=== PATIENT | female | born 1985 | race Two or more races ===

== ENCOUNTER 2021-05-13 14:28 | Emergency (ER) | payer SELFPAY ==
--- NOTE | 2021-05-13 15:22 | EDM.PDOC ---
ED HPI GENERAL MEDICAL PROBLEM - General Stated Complaint: DIZZY Time Seen by Provider: 05/13/21 15:20 Source of Information: Reports: Patient History Limitations: Reports: No Limitations - History of Present Illness INITIAL COMMENTS - FREE TEXT/NARRATIVE: 36-year-old female who reports onset last Friday with dizziness that is both twisting and tipping and feeling off balance. She reports the symptoms have been coming and going since 1 week ago and they have also been intermittently associated with headaches that have been occipital and also bitemporal. They have also been associated with nausea but no vomiting. She also has been having a feeling of numbness and tingling in both her left arm and left. All the symptoms seem to come and go and the longest that they have lasted would be today and it lasted for about 2 hours now. The headache is rated by her as a 7/10. The pain is a pressure type pain. She states at times she feels completely back to normal and has none of the symptoms and then they seemed to come on without any provocation. She does not feel that her dizziness is worse or better with her head but she does feel that there is some worsening in her dizziness now when she closes her eyes. No diarrhea. No abdominal pain. She feels that her vision is good. She also feels that she is having no problems thinking, speaking or finding words. She does not feel weak one side of her body versus the other. There are no other associated signs or symptoms. There are no other modifying factors. Onset: Other (One week ago) Duration: Waxing/Waning (It seems to come and go but has been present over the past week.) Location: Reports: Head Quality: Reports: Pressure Severity: Moderate Improves with: Reports: None Worsens with: Reports: Other (Activity. 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 (see below) (Nothing.) Bilateral Leg Pain Score (Numeric/FACES): 4 - Related Data Allergies Allergy/AdvReac Type Severity Reaction Status Date / Time No Known Allergies Allergy Verified 06/30/18 10:33 Home Meds: Home Meds Meloxicam 15 mg PO DAILY #20 tablet 06/30/18 [Rx] Meclizine [Antivert] 25 mg PO Q6H PRN #15 tab 08/29/21 [Rx] Past Medical History - Past Surgical History GI Surgical History: Reports: Cholecystectomy Female Surgical History: Reports: Tubal Ligation Social & Family History - Tobacco Use Tobacco Use Status *Q: Unknown Ever Used Tobacco (Nonsmoker.) - Caffeine Use Caffeine Use: Reports: Soda - Alcohol Use Alcohol Use History: No - Living Situation & Occupation Living situation: Reports: ED ROS GENERAL - Review of Systems Review Of Systems: See Below Constitutional: Denies: Fever, Chills, Weakness, Diaphoresis HEENT: Reports: Other (No tinnitus). Denies: Ear Pain, Hearing Loss, Vision Change Cardiovascular: Denies: Chest Pain, Edema, Palpitations GI/Abdominal: Reports: Nausea. Denies: Diarrhea, Vomiting : Denies: Dysuria, Hematuria Musculoskeletal: Denies: Neck Pain, Shoulder Pain Skin: Denies: Rash, Wound Neurological: Reports: Dizziness, Headache. Denies: Confusion Psychiatric: Reports: Anxiety. Denies: Confusion Hematologic/Lymphatic: Denies: Easy Bleeding, Easy Bruising ED EXAM, DIZZINESS - Physical Exam Exam: See Below Exam Limited By: No Limitations General Appearance: Alert, No Apparent Distress, Obese Eye Exam: Bilateral Eye: EOMI, Normal Inspection, PERRL, Other (No nystagmus) Ears: Normal External Exam, Hearing Grossly Normal Nose: Normal Inspection, Normal Mucosa, No Blood Throat/Mouth: Normal Inspection, Normal Oropharynx, Normal Voice, No Airway Compromise Head Exam: Atraumatic, Normocephalic Neck: Normal Inspection, Supple, Non-Tender, Full Range of Motion Respiratory/Chest: No Respiratory Distress, Lungs Clear, Normal Breath Sounds, No Accessory Muscle Use Cardiovascular: Normal Peripheral Pulses, Regular Rate, Rhythm GI/Abdominal: Normal Bowel Sounds, Soft, Non-Tender, No Mass Neurological: Alert, Normal Mood/Affect, Normal Dorsiflexion, CN II-XII Intact, Normal Plantar Flexion, Normal Gait, No Motor/Sensory Deficits, Oriented x 3, Other (No pronator drift. Finger to nose is normal with no dysmetria.) Back Exam: Normal Inspection, Full Range of Motion Extremities: Normal Inspection, Normal Range of Motion, Non-Tender, No Pedal Edema, Normal Capillary Refill Psychiatric: Normal Affect, Normal Mood Skin Exam: Warm, Dry, Intact, Normal Color, No Rash #1 Interpretation EKG Date: 05/13/21 Time: 16:28 Rhythm: NSR Rate (Beats/Min): 66 Wallace: Normal P-Wave: Present QRS: Normal ST-T: Other (Borderline T-wave abnormalities in anterior leads) QT: Normal Comparison: No Change (No change from EKG performed on 03/15/2014.) Course - Vital Signs Last Recorded V/S: Last Vital Signs Temp 37.1 C 05/13/21 14:30 Pulse 78 05/13/21 14:30 Resp 18 05/13/21 14:30 BP 140/86 05/13/21 14:30 Pulse Ox 97 05/13/21 14:30 - Orders/Labs/Meds Orders: Active Orders 24 hr Category Date Time Status Ang Head [CT] Stat Exams 05/13/21 15:47 Taken Ang Neck [CT] Stat Exams 05/13/21 15:47 Taken Sodium Chloride 0.9% [Saline Flush] Med 05/13/21 15:47 Active 10 ml FLUSH ASDIRECTED PRN Peripheral IV Insertion Adult [OM.PC] Routine Oth 05/13/21 15:47 Ordered EKG 12 Lead [EK] Routine Ther 05/13/21 15:47 Ordered Medication Orders Sodium Chloride (Sodium Chloride 0.9% 10 Ml Syringe) 10 ml FLUSH ASDIRECTED PRN PRN Reason: Keep Vein Open Last Admin: 05/13/21 15:55 Dose: 10 ml Documented by: SALOME Labs: Laboratory Tests 05/13/21 05/13/21 05/13/21 Range/Units 16:00 16:00 16:00 WBC 8.8 (3.0-10.3) x10-3/uL RBC 4.54 (3.60-5.20) x10(6)uL Hgb 13.4 (11.4-15.5) g/dL Hct 39.4 (34.2-48.2) % MCV 86.8 (76.7-100.5) fL MCH 29.5 (23.9-33.9) pg MCHC 34.0 (31.9-34.8) g/dL RDW 13.5 (12.3-16.5) % Plt Count 464 (151-488) x10(3)uL MPV 8.1 (7.1-12.4) fL Neut % (Auto) 76.2 (30.8-76.2) % Lymph % (Auto) 16.1 L (18.4-52.1) % Nicol[place] % (Auto) 6.1 (4.4-15.7) % Eos % (Auto) 0.9 (0.6-8.1) % Baso % (Auto) 0.7 (0.2-1.5) % Neut # (Auto) 6.7 H (1.5-6.3) x10-3/uL Lymph # (Auto) 1.4 (1.0-4.4) x10-3/uL Nicollet # (Auto) 0.5 (0.3-1.0) x10-3/uL Eos # (Auto) 0.1 (0.0-0.8) x10-3/uL Baso # (Auto) 0.1 (0.0-0.1) x10-3/uL ESR (0-20) mm/hr Sodium 141 (135-145) mmol/L Potassium 3.8 (3.5-5.3) mmol/L Chloride 104 (100-110) mmol/L Carbon Dioxide 28 (21-32) mmol/L BUN 8 (7-18) mg/dL Creatinine 0.7 (0.55-1.02) mg/dL Est Cr Clr Drug Dosing TNP Estimated GFR (MDRD) > 60 (>60) BUN/Creatinine Ratio 11.4 (9-20) Glucose 113 (80-116) mg/dL Calcium 9.8 (8.6-10.2) mg/dL Magnesium 1.9 (1.8-2.5) mg/dL Total Bilirubin 0.4 (0.1-1.3) mg/dL AST 19 D (5-25) IU/L ALT 30 D (12-36) U/L Alkaline Phosphatase 104 (56-112) IU/L Troponin I 9.3 (4.0-60.3) pg/mL Total Protein 7.8 (6.0-8.0) g/dL Albumin 3.7 (3.5-5.2) g/dL Globulin 4.1 g/dL Albumin/Globulin Ratio 0.9 08// Range/Units 16:00 WBC (3.0-10.3) x10-3/uL RBC (3.60-5.20) x10(6)uL Hgb (11.4-15.5) g/dL Hct (34.2-48.2) % MCV (76.7-100.5) fL MCH (23.9-33.9) pg MCHC (31.9-34.8) g/dL RDW (12.3-16.5) % Plt Count (151-488) x10(3)uL MPV (7.1-12.4) fL Neut % (Auto) (30.8-76.2) % Lymph % (Auto) (18.4-52.1) % Nicollet % (Auto) (4.4-15.7) % Eos % (Auto) (0.6-8.1) % Baso % (Auto) (0.2-1.5) % Neut # (Auto) (1.5-6.3) x10-3/uL Lymph # (Auto) (1.0-4.4) x10-3/uL Nicollet # (Auto) (0.3-1.0) x10-3/uL Eos # (Auto) (0.0-0.8) x10-3/uL Baso # (Auto) (0.0-0.1) x10-3/uL ESR 18 (0-20) mm/hr Sodium (135-145) mmol/L Potassium (3.5-5.3) mmol/L Chloride (100-110) mmol/L Carbon Dioxide (21-32) mmol/L BUN (7-18) mg/dL Creatinine (0.55-1.02) mg/dL Est Cr Clr Drug Dosing Estimated GFR (MDRD) (>60) BUN/Creatinine Ratio (9-20) Glucose (80-116) mg/dL Calcium (8.6-10.2) mg/dL Magnesium (1.8-2.5) mg/dL Total Bilirubin (0.1-1.3) mg/dL AST (5-25) IU/L ALT (12-36) U/L Alkaline Phosphatase (56-112) IU/L Troponin I (4.0-60.3) pg/mL Total Protein (6.0-8.0) g/dL Albumin (3.5-5.2) g/dL Globulin g/dL Albumin/Globulin Ratio Meds: Medications Generic Name Dose Route Start Last Admin Trade Name Aiden PRN Reason Stop Dose Admin Sodium Chloride 10 ml 05/13/21 15:47 05/13/21 15:55 Sodium Chloride 0.9% 10 Ml Syringe FLUSH 10 ml ASDIRECTED PRN Administration Keep Vein Open Discontinued Medications Generic Name Dose Route Start Last Admin Trade Name Aiden PRN Reason Stop Dose Admin Sodium Chloride 500 mls @ 999 mls/hr 05/13/21 15:51 05/13/21 16:00 Normal Saline IV 05/13/21 16:21 999 mls/hr .BOLUS ONE Administration Iopamidol 100 ml 05/13/21 16:07 05/13/21 16:21 Iopamidol 755 Mg/Ml 100 Ml Bottle IV 05/13/21 16:08 100 ml . DIRECTED ONE Administration Meclizine HCl 25 mg 05/13/21 15:51 05/13/21 16:00 Meclizine 25 Mg Tab PO 05/13/21 15:52 25 mg ONETIME ONE Administration - Radiology Interpretation Free Text/Narrative:: CTA of the neck showed no major vessel occlusion, hemodynamically significant stenosis or arterial dissection. There was no aneurysm. This was per the [facility] radiologist. CTA of the head showed major vessel occlusion, hemodynamically significant stenosis or arterial dissection. No aneurysm. This was per the [facility] radiologist - Re-Assessments/Exams Free Text/Narrative Re-Assessment/Exam: 05/13/21 16:35: White blood cell count was 8.8. Hemoglobin is 13.4. Platelet count is normal. Serum electrolyte profile is normal. Glucose is 113. LFTs are normal. Troponin is normal. Her EKG is normal. A sedimentation rate was normal. I am awaiting the results of the CTAs of her head and neck. She has remained hemodynamically and neurologically stable and in fact any headache or left-sided symptoms now and her dizziness is much improved as well (she had been given meclizine 25 mg orally earlier). 05/13/21 17:00: Patient feels much improved. Her dizziness and headache have resolved. She has no feeling of going or numbness over the left arm or leg. The CTAs of the head and neck were negative. I am unsure why she is having the headache and the dizziness but it does not appear to be anything of a serious nature at this point. This could be labyrinthitis as I discussed with her or could also be a migraine variant. I will give her a prescription of meclizine she can use as needed for dizziness. She should increase her fluid intake. She should rest. All of this was discussed with the patient and I answered her questions. She is comfortable with the plan for discharge. Precautions and reasons for return to the emergency department were discussed with the patient also was in the emergency department or detailed in the patient's discharge instructions. Departure - Departure Time of Disposition: 17:40 Disposition: Home, Self-Care 01 Condition: Good Clinical Impression: Dizziness Headache Qualifiers: Headache type: unspecified Headache chronicity pattern: acute headache Intractability: not intractable Qualified Code(s): R51.9 - Headache, unspecified - Discharge Information Prescriptions: Meclizine [Antivert] 25 mg PO Q6H PRN #15 tab PRN Reason: Dizziness Instructions: General Headache Without Cause, [id number], Dizziness, [id number] Referrals: Kamila Cabrera NP [Primary Care Provider] - Additional Instructions: All of your blood tests were reassuringly normal. Your EKG was normal. The CT scans of your head and neck showed no evidence of aneurysm, stroke or tumor. I'm unsure why you are having the dizziness and headache and tingling on the left side. As we discussed, it could be a migraine headache variant. It could also be a viral infection of your inner ear. You need to increase your fluid intake. Medication as prescribed (meclizine 25 mg). Her primary provider this next week. Back to the emergency department for worsening headache, unrelenting vomiting, high fever, localized area of weakness, trouble speaking or swallowing or any other concerning signs or symptoms. Sepsis Event Note (ED) - Focused Exam Vital Signs: Vital Signs Temp Pulse Resp BP Pulse Ox 05/13/21 14:30 37.1 C 78 18 140/86 97 - My Orders Last 24 Hours: My Active Orders 05/13/21 15:47 Ang Head [CT] Stat Ang Neck [CT] Stat Sodium Chloride 0.9% [Saline Flush] 10 ml FLUSH ASDIRECTED PRN Peripheral IV Insertion Adult [OM.PC] Routine EKG 12 Lead [EK] Routine - Assessment/Plan Last 24 Hours: My Active Orders 05/13/21 15:47 Ang Head [CT] Stat Ang Neck [CT] Stat Sodium Chloride 0.9% [Saline Flush] 10 ml FLUSH ASDIRECTED PRN Peripheral IV Insertion Adult [OM.PC] Routine EKG 12 Lead [EK] Routine
[2021-05-13] MEDS ORDERED: Sodium Chloride 0.9% 10 ML Syringe FLUSH PRN (15:47)
[2021-05-13] MEDS ORDERED: Sodium Chloride 0.9% 500 ML IV ONE (15:51)
[2021-05-13] MEDS ORDERED: Meclizine 25 MG Tab PO ONE (15:51)
[2021-05-13] MEDS ORDERED: Iopamidol 755 Mg/ML 100 ML Bottle IV ONE (16:07)
== END 2021-05-13 18:00 | disposition home or self-care (01) ==
LOC: FB.ED 14:28
DX: R42 Dizziness and giddiness (principal); R51.9 Headache, unspecified
CPT/HCPCS: 70496; 70498; 80053; 83735; 84484; 85025; 85651; 93005; 99284; A9270; J7040; Q9967

== ENCOUNTER 2022-03-02 04:53 | Emergency (ER) | payer SELFPAY ==
[2022-03-02 05:59] LABS: ESTIMATED GFR 118 mL/min (>60)
[2022-03-02] MEDS ORDERED: Potassium Chloride 20 MEQ Tab.ER PO STA (06:28)
== END 2022-03-02 06:43 | disposition home or self-care (01) ==
LOC: FB.ED 04:53
DX: S39.012A Strain of muscle, fascia and tendon of lower back, initial encounter (principal); R07.89 Other chest pain; E87.6 Hypokalemia; I10 Essential (primary) hypertension; E78.00 Pure hypercholesterolemia, unspecified; K21.9 Gastro-esophageal reflux disease without esophagitis; E66.9 Obesity, unspecified; Z68.41 Body mass index [BMI] 40.0-44.9, adult; Z91.09 Other allergy status, other than to drugs and biological substances
CPT/HCPCS: 36415; 80053; 84484; 85025; 93005; 99285; A9270

== ENCOUNTER 2022-06-09 15:36 | Emergency (ER) | payer SELFPAY | END 2022-06-09 16:40 | disposition home or self-care (01) | LOC: FB.ED 15:36 | DX: M77.8 Other enthesopathies, not elsewhere classified (principal); G62.9 Polyneuropathy, unspecified; E66.9 Obesity, unspecified; Z68.41 Body mass index [BMI] 40.0-44.9, adult; Z88.8 Allergy status to other drugs, medicaments and biological substances; Z79.899 Other long term (current) drug therapy; Z86.16 Personal history of COVID-19; Z90.49 Acquired absence of other specified parts of digestive tract | CPT/HCPCS: 93005; 99284 ==

== ENCOUNTER 2023-03-23 05:03 | Emergency (ER) | payer BC ==
[2023-03-23 05:42] LABS: BASOPHILS ABSOLUTE AUTO 0.1 x10-3/uL (0.0-0.1); BASOPHILS PERCENT AUTO 0.7 % (0.2-1.5); EOSINOPHILS ABSOLUTE AUTO 0.1 x10-3/uL (0.0-0.8); EOSINOPHILS PERCENT AUTO 1.3 % (0.6-8.1); HEMATOCRIT 36.2 % (34.2-48.2); HEMOGLOBIN 12.1 g/dL (11.4-15.5); LYMPHOCYTES ABSOLUTE AUTO 2.1 x10-3/uL (1.0-4.4); LYMPHOCYTES PERCENT AUTO 23.9 % (18.4-52.1); MEAN CORPUSCULAR HEMOGLOBIN 28.5 pg (23.9-33.9); MEAN CORPUSCULAR HGB CONC 33.5 g/dL (31.9-34.8); MEAN PLATELET VOLUME 8.2 fL (7.1-12.4); MONOCYTES ABSOLUTE AUTO 0.6 x10-3/uL (0.3-1.0); MONOCYTES PERCENT AUTO 6.7 % (4.4-15.7); NEUTROPHILS ABSOLUTE AUTO 5.9 x10-3/uL (1.5-6.3); NEUTROPHILS PERCENT AUTO 67.4 % (30.8-76.2); PLATELET COUNT,PLT 445 x10(3)uL (151-488); RED BLOOD CELL COUNT 4.25 x10(6)uL (3.60-5.20); RED CELL DISTRIBUTION WIDTH 13.5 % (12.3-16.5); WHITE BLOOD CELL COUNT,WBC 8.7 x10-3/uL (3.0-10.3)
[2023-03-23 05:43] LABS: BLOOD UREA NITROGEN,BUN 14 mg/dL (7-18); CALCIUM 8.7 mg/dL (8.6-10.2); CARBON DIOXIDE,CO2 28 mmol/L (21-32); CHLORIDE,CL 103 mmol/L (100-110); CREATININE 0.7 mg/dL (0.55-1.02); EST CRCL DRUG DOSING (CG) 76.74 mL/min; ESTIMATED GFR 112 mL/min (>60); GLUCOSE RANDOM 109 mg/dL (80-116); POTASSIUM,K 3.6 mmol/L (3.5-5.3); SODIUM,NA 139 mmol/L (135-145)
== END 2023-03-23 06:43 | disposition home or self-care (01) ==
LOC: FB.ED 05:03
DX: F41.9 Anxiety disorder, unspecified (principal); E66.9 Obesity, unspecified; Z68.41 Body mass index [BMI] 40.0-44.9, adult; Z79.899 Other long term (current) drug therapy; Z88.8 Allergy status to other drugs, medicaments and biological substances; Z86.16 Personal history of COVID-19
CPT/HCPCS: 36415; 71045; 80048; 84484; 85025; 85379; 93005; 93010; 99283; 99285